=== PATIENT | male | born 2005 | race Caucasian/White ===

== ENCOUNTER 2025-03-15 18:50 | Emergency (ER) | payer BC ==
[2025-03-15] MEDS: Take Home: Cephalexin 500 MG Cap, 6 Cap Pack PO ONE (19:24)
== END 2025-03-15 19:30 | disposition home or self-care (01) ==
LOC: VM.ED 18:50
DX: L02.214 Cutaneous abscess of groin (principal)
CPT/HCPCS: 99283; A9270-GY